=== PATIENT | female | born 1990 | race Caucasian/White ===

== ENCOUNTER 2016-11-04 02:38 | Emergency (ER) | payer SELFPAY ==
[~2016-11-04] VITALS: Ht 165.1 cm; Wt 69.0 kg
[2016-11-04 02:49] VITALS: BP 115/71; PULSE 90; RESP 16; TEMP 98.1; O2SAT 100
== END 2016-11-04 04:32 | disposition left against medical advice (07) ==
LOC: NED 02:38
DX: N39.0 Urinary tract infection, site not specified (principal)
CPT/HCPCS: 99281

== ENCOUNTER 2017-03-11 06:44 | Emergency (ER) | payer SELFPAY ==
[~2017-03-11] VITALS: Ht 167.6 cm; Wt 65.0 kg
[2017-03-11 06:46] VITALS: BP 126/73; PULSE 101; RESP 16; TEMP 99.6; O2SAT 99
[2017-03-11] MEDS ORDERED: PERI0.126 SWISH-SPIT (07:20)
[2017-03-11] MEDS ORDERED: AMOX500C PO (07:20)
[2017-03-11] MEDS ORDERED: IBUP800T23 PO (07:20)
[2017-03-11] MEDS ORDERED: MAGICPED SWISH-SPIT (07:20)
--- NOTE | 2017-03-11 07:21 | PD ---
HPI Chief Complaint: Oral / Dental Pain or Problem Time Seen by Provider: 07:16 Travel History International Travel<30 days: No Contact w/Intl Traveler<30days: No Traveled to known affect area: No History of Present Illness HPI 26-year-old female presents to the emergency department complaining of left lower dental pain 2 days. She says it started 2 weeks ago that subsided and then came back 2 days ago. Denies fever, vomiting. Denies facial edema or erythema. Reports sore throat. She says she has a cavity in her tooth. She has been taking ibuprofen and using Orajel with minimal relief. Pain is constant. Has no other medical complaints. No other modifying factors or associated signs and symptoms. PFSH Past Medical History Blood Disorders: No Anxiety: Yes Depression: No Cardiovascular Problems: No Chemotherapy: No Diabetes: No Diminished Hearing: No Endocrine: No Gastrointestinal Disorders: Yes (n/v easily) Genitourinary: No Hepatitis: No Hiatal Hernia: No Immune Disorder: No Kidney Stones: Yes Musculoskeletal: No Neurologic: No Psychiatric: Yes (ANXIETY) Respiratory: No Immunizations Current: No Radiation Therapy: No Thyroid Disease: No : 2 Para: 0 : 2 Past Surgical History AICD: No Arteriovenous Shunt: No Body Medical Devices: hx CONTROL Ear Surgery: Yes (eustachian tubes bianca) Genitourinary Surgery: Yes (LITHOTRYPSY) Gynecologic Surgery: Yes (ENDOMETRIOSIS SX) Insulin Pump: No Pacemaker: No Tympanostomy Tube: Yes Other Surgery: Yes (KIDNEY STONE- LITHOTRIPSY ) Social History Alcohol Use: No Tobacco Use: Yes (1/2PPD) Substance Use: No Allergies-Medications (Allergen,Severity, Reaction): Coded Allergies: *MDRO Multi-Drug Resistant Organism (Verified Adverse Reaction, Unknown, ) MRSA (wound) - 11/2007 Reported Meds & Prescriptions Reported Meds & Active Scripts Active Peridex Liq (Chlorhexidine Gluconate (Mouth) Liq) 0.12% Soln 15 Ml SWISH-SPIT BID 10 Days Ibuprofen 800 Mg Tab 800 Mg PO Q6HR PRN Magic Mouthwash Pediatric/Adult Liq (Lidocaine/Diphenhydr/Alum/Mg/Simeth) 60 Ml Susp 5 Ml SWISH-SPIT Q3HR PRN Each 5mL contains: Diphenydramine 4.5mg, Viscous Lidocaine 2% 10mg, Maalox Advanced Regular Strength 2.7ml Amoxicillin 500 Mg Cap 500 Mg PO BID 10 Days Review of Systems Except as stated in HPI: all other systems reviewed are Neg Physical Exam Narrative GENERAL: Well-nourished, well-developed female patient, in no acute distress; low grade fever 99.6; nontoxic-appearing SKIN: Warm and dry. HEAD: Atraumatic. Normocephalic. No facial edema, erythema, tenderness on palpation. No lymphadenopathy. EYES: Pupils equal and round. No scleral icterus. No injection or drainage. ENT: Mucosa pink and moist. Oropharynx without edema, erythema or exudates. No uvular edema. No uvular, palatal, or tonsillar deviation. Airway patent. MOUTH: Mucous membranes moist, no lesions, tongue and gums appear normal. Left lower tooth #18 with large dental carry and with tenderness on palpation; turning gingiva is without erythema, edema, drainage. No obvious abscess noted. NECK: Trachea midline. No lymphadenopathy. CARDIOVASCULAR: Regular rate. RESPIRATORY: No accessory muscle use. GASTROINTESTINAL: Flat. MUSCULOSKELETAL: No obvious deformities. No clubbing. No cyanosis. No edema. NEUROLOGICAL: Awake and alert. Oriented 3. No obvious cranial nerve deficits. Motor grossly within normal limits. Normal speech. PSYCHIATRIC: Appropriate mood and affect; insight and judgment normal. Data Data Last Documented VS Vital Signs Date Time Temp Pulse Resp B/P Pulse Ox O2 Delivery O2 Flow Rate FiO2 03/11/17 06:46 99.6 101 16 126/73 99 MDM Medical Decision Making Medical Screen Exam Complete: Yes Emergency Medical Condition: Yes Medical Record Reviewed: Yes Differential Diagnosis Dentalgia, infected dental caries, dental abscess, pharyngitis Narrative Course 26-year-old female with a large dental cavity and dentalgia to left lower tooth #18. Patient is with low-grade fever 99.6. Nontoxic-appearing. No facial erythema or edema. Patient is also complaining of sore throat. Oral pharynx was without erythema, edema, exudate. Emergency dental information sheet provided. Amoxicillin, ibuprofen, Magic mouthwash, Peridex mouth rinse prescribed for home. Instructed patient follow-up with dentist. Patient verbalizes understanding and agreement with treatment plan. Patient is medically cleared and stable for discharge. Discussed reasons to return to the emergency department. Instructed patient to follow up with primary care provider. Patient agrees with treatment plan. The patients vital signs are stable and the patient is stable for outpatient follow-up and treatment. Patient discharged home, stable and in no acute distress. Diagnosis Primary Impression: Tooth pain Additional Impression: Dental cavity Referrals: Dentist Primary Care Physician Patient Instructions: Dental Abscess (ED), Dental Caries (ED), General Instructions, Toothache (ED) Departure Forms: Tests/Procedures Additional Instructions: Complete full course of antibiotics Ibuprofen as directed and as needed to reduce pain and inflammation Use Magic mouthwash rinse as directed and as needed to decrease pain Use Peridex as directed for oral hygiene Warm compresses to the affected area Follow-up with dentist Follow-up with primary care provider Return to emergency department immediately with worsening of symptoms Med/Other Pt SpecificInfo: Prescription(s) given Scripts Chlorhexidine Gluconate (Mouth) Liq (Peridex Liq)0.12% Soln15 Ml SWISH-SPIT BID 10 Days Ref 0 Prov:Honey Flores 03/11/17 Ibuprofen 800 Mg Won470 Mg PO Q6HR PRN (PAIN) #30 TAB Ref 0 Prov:Honey Flores 03/11/17 Uzpbfhokpdnofku-Augqzuncv-Qfr-Alum-Simeth Liq (Magic Mouthwash Pediatric/Adult Liq)60 Ml Susp5 Ml SWISH-SPIT Q3HR PRN (PAIN SCALE 1 TO 10) #60 ML Ref 0 Each 5mL contains: Diphenydramine 4.5mg, Viscous Lidocaine 2% 10mg, Maalox Advanced Regular Strength 2.7ml Prov:Honey Flores 03/11/17 Amoxicillin 500 Mg [id number] Mg PO BID 10 Days Ref 0 Prov:Honey Flores 03/11/17 Disposition: 01 DISCHARGE HOME Condition: Stable Honey Flores March 11, 2017 07:21
== END 2017-03-11 07:50 | disposition home or self-care (01) ==
LOC: NEPK 06:44
DX: K08.89 Other specified disorders of teeth and supporting structures (principal); K02.9 Dental caries, unspecified; J02.9 Acute pharyngitis, unspecified
CPT/HCPCS: 99282

== ENCOUNTER 2017-09-22 18:10 | Emergency (ER) | payer SELFPAY ==
[~2017-09-22] VITALS: Ht 165.1 cm; Wt 65.0 kg
[~2017-09-22 18:10] MED LIST: AMOX500C PO; IBUP1TAB7 PO; MAGICPED SWISH-SPIT; PERI0.126 SWISH-SPIT
[2017-09-22 18:11] VITALS: BP 129/60; PULSE 86; RESP 18; TEMP 98.8; O2SAT 100
[2017-09-22] MEDS ORDERED: SODIUM CHLOR 0.9% 1000 ML INJ 1,000 ML IV ONE (19:13)
[2017-09-22] MEDS ORDERED: SODIUM CHLORIDE 0.9% FLUSH 10 ML FLUSH IVF PRN (19:15)
[2017-09-22] MEDS ORDERED: KETOROLAC TROMETHAMINE 30 MG/ML (IVP) VIAL IV PUSH ONE (19:15)
[2017-09-22 19:41] LABS: AUTOMATED NEUTROPHIL # 3.7 TH/MM3 (1.8-7.7); BASOPHIL % 0.6 % (0.0-2.0); EOSINOPHIL # 0.1 TH/MM3 (0-0.4); EOSINOPHIL % 0.9 % (0.0-4.0); HEMATOCRIT 40.8 % (35.0-46.0); HEMO FLAGS DIFF FINAL; LYMPH % 33.5 % (9.0-44.0); LYMPHOCYTE # 2.1 TH/MM3 (1.0-4.8); MEAN CELL VOLUME 90.4 FL (80.0-100.0); MEAN CORPUSCULAR HEMOGLOBIN 31.1 PG (27.0-34.0); MEAN CORPUSCULAR HGB CONC 34.4 % (32.0-36.0); MONO % 6.7 % (0.0-8.0); NEUT % 58.3 % (16.0-70.0); PLATELET COUNT 188 TH/MM3 (150-450); RED BLOOD COUNT 4.51 MIL/MM3 (4.00-5.30); RED CELL DISTRIBUTION WIDTH 13.3 % (11.6-17.2); WHITE BLOOD COUNT 6.4 TH/MM3 (4.0-11.0)
[2017-09-22 19:43] LABS: BACTERIA, URINE OCC /hpf; BLOOD, URINE SMALL (NEG); COMMENT (UR) CULT NOT INDICATED; CULTURE IF INDICATED CULT NOT INDICATED; GLUCOSE,URINE NEG (NEG); KETONE, URINE 40 mg/dL (NEG); MUCUS URINE FEW /lpf (OCC); NITRITE,URINE NEG (NEG); PH, URINE 6.5 (5.0-8.5); SQUAMOUS EPITHELIAL CELL URINE 4 /hpf (0-5); URINE COLOR YELLOW (YELLW/STRAW)
[2017-09-22 20:04] LABS: ANION GAP 7 MEQ/L (5-15); AST (GOT) 13 U/L (15-37); BICARBONATE 25.6 MEQ/L (21.0-32.0); BLOOD UREA NITROGEN 11 MG/DL (7-18); CHLORIDE 106 MEQ/L (98-107); GLOMERULAR FILTRATION RATE 79 ML/MIN (>89); POTASSIUM 3.5 MEQ/L (3.5-5.1); SODIUM (NA) 139 MEQ/L (136-145)
[2017-09-22 20:08] LABS: ALKALINE PHOSPHATASE 55 U/L (45-117); ALT (GPT) 15 U/L (10-53); TOTAL BILIRUBIN ADULT 0.5 MG/DL (0.2-1.0)
--- NOTE | 2017-09-22 20:24 | PD ---
HPI Chief Complaint: Flank/Kidney Pain Time Seen by Provider: 18:57 Travel History International Travel<30 days: No Contact w/Intl Traveler<30days: No Traveled to known affect area: No History of Present Illness HPI 26-year-old female presents to the emergency room for evaluation of right flank pain, dysuria, urgency, frequency for the past 3 days. She has not been taking anything for her symptoms. Patient has extensive history of kidney stone since she was 11. States this feels the same. She has associated nausea without vomiting. Denies fever, chills, abdominal pain, diarrhea, or abnormal vaginal discharge. Last menstrual cycle was one week ago. PFSH Past Medical History Blood Disorders: No Anxiety: Yes Depression: No Cardiovascular Problems: No Chemotherapy: No Diabetes: No Diminished Hearing: No Endocrine: No Gastrointestinal Disorders: Yes (n/v easily) Genitourinary: No Hepatitis: No Hiatal Hernia: No Immune Disorder: No Kidney Stones: Yes Musculoskeletal: No Neurologic: No Psychiatric: Yes (ANXIETY) Respiratory: No Immunizations Current: No Radiation Therapy: No Thyroid Disease: No ?: Not LMP: 09/2017 : 2 Para: 0 : 2 Past Surgical History AICD: No Arteriovenous Shunt: No Body Medical Devices: hx CONTROL Ear Surgery: Yes (eustachian tubes bianca) Genitourinary Surgery: Yes (LITHOTRYPSY) Gynecologic Surgery: Yes (ENDOMETRIOSIS SX) Insulin Pump: No Pacemaker: No Tympanostomy Tube: Yes Other Surgery: Yes (KIDNEY STONE- LITHOTRIPSY ) Social History Alcohol Use: No Tobacco Use: Yes (1/2PPD) Substance Use: No Allergies-Medications (Allergen,Severity, Reaction): Coded Allergies: levofloxacin (Verified Adverse Reaction, Severe, VOMITING, 09/22/17) *MDRO Multi-Drug Resistant Organism (Verified Adverse Reaction, Unknown, 09/22/17) MRSA (wound) - 11/2007 Reported Meds & Prescriptions Reported Meds & Active Scripts Active No Active Prescriptions or Reported Medications Review of Systems Except as stated in HPI: all other systems reviewed are Neg Physical Exam Narrative GENERAL: Well-nourished, well-developed female in no acute distress. Afebrile. Ambulatory. SKIN: Focused skin assessment warm/dry. HEAD: Normocephalic. EYES: No scleral icterus. No injection or drainage. NECK: Supple, trachea midline. No JVD or lymphadenopathy. CARDIOVASCULAR: Regular rate and rhythm without murmurs, gallops, or rubs. RESPIRATORY: Breath sounds equal bilaterally. No accessory muscle use. GASTROINTESTINAL: Abdomen soft, non-tender, nondistended. BACK: Mild right-sided CVA tenderness. No rash. No point tenderness on palpation of the spine. Data Data Last Documented VS Vital Signs Date Time Temp Pulse Resp B/P (MAP) Pulse Ox O2 Delivery O2 Flow Rate FiO2 09/22/17 18:11 98.8 86 18 129/60 (83) 100 Room Air Orders Orders Complete Blood Count With Diff (09/22/17 19:13) Comprehensive Metabolic Panel (09/22/17 19:13) Urinalysis - C+S If Indicated (09/22/17 19:13) Ed Urine Pregnancytest Poc (09/22/17 19:13) Ct Abd/Pel W/O Iv Contrast (09/22/17 19:13) Iv Access Insert/Monitor (09/22/17 19:13) Ketorolac Inj (Toradol Inj) (09/22/17 19:15) Sodium Chloride 0.9% Flush (Ns Flush) (09/22/17 19:15) Sodium Chlor 0.9% 1000 Ml Inj (Ns 1000 M (09/22/17 19:13) Labs Laboratory Tests Test 09/22/17 19:20 White Blood Count 6.4 TH/MM3 Red Blood Count 4.51 MIL/MM3 Hemoglobin 14.0 GM/DL Hematocrit 40.8 % Mean Corpuscular Volume 90.4 FL Mean Corpuscular Hemoglobin 31.1 PG Mean Corpuscular Hemoglobin Concent 34.4 % Red Cell Distribution Width 13.3 % Platelet Count 188 TH/MM3 Mean Platelet Volume 10.0 FL Neutrophils (%) (Auto) 58.3 % Lymphocytes (%) (Auto) 33.5 % Monocytes (%) (Auto) 6.7 % Eosinophils (%) (Auto) 0.9 % Basophils (%) (Auto) 0.6 % Neutrophils # (Auto) 3.7 TH/MM3 Lymphocytes # (Auto) 2.1 TH/MM3 Monocytes # (Auto) 0.4 TH/MM3 Eosinophils # (Auto) 0.1 TH/MM3 Basophils # (Auto) 0.0 TH/MM3 CBC Comment DIFF FINAL Differential Comment Urine Color YELLOW Urine Turbidity CLEAR Urine pH 6.5 Urine Specific [place] 1.024 Urine Protein TRACE mg/dL Urine Glucose (UA) NEG mg/dL Urine Ketones 40 mg/dL Urine Occult Blood SMALL Urine Nitrite NEG Urine Bilirubin NEG Urine Urobilinogen LESS THAN 2.0 MG/DL Urine Leukocyte Esterase TRACE Urine RBC 2 /hpf Urine WBC 2 /hpf Urine Squamous Epithelial Cells 4 /hpf Urine Amorphous Sediment RARE Urine Bacteria OCC /hpf Urine Mucus FEW /lpf Microscopic Urinalysis Comment CULT NOT INDICATED Blood Urea Nitrogen 11 MG/DL Creatinine 0.86 MG/DL Random Glucose 82 MG/DL Total Protein 7.7 GM/DL Albumin 4.5 GM/DL Calcium Level 8.8 MG/DL Alkaline Phosphatase 55 U/L Aspartate Amino Transf (AST/SGOT) 13 U/L Alanine Aminotransferase (ALT/SGPT) 15 U/L Total Bilirubin 0.5 MG/DL Sodium Level 139 MEQ/L Potassium Level 3.5 MEQ/L Chloride Level 106 MEQ/L Carbon Dioxide Level 25.6 MEQ/L Anion Gap 7 MEQ/L Estimat Glomerular Filtration Rate 79 ML/MIN [facility] Medical Decision Making Medical Screen Exam Complete: Yes Emergency Medical Condition: Yes Medical Record Reviewed: Yes Differential Diagnosis UTI, nephrolithiasis, renal calculus, dysuria, obstructive uropathy Narrative Course 18-year-old female history of nephrolithiasis presents to the emergency room for evaluation of right flank pain, dysuria, urgency, frequency for the past 3 weeks that has worsened especially over the past 3 days. She denies objective fevers, vaginal discharge. LMP was 1 week ago. Vital signs stable and the ED. Abdomen soft, nontender. No flank moderate right-sided CVA tenderness. CBC and CMP are unremarkable. UA shows evidence of urinary tract infection especially given patient is symptomatic. CT ordered and pending. Patient signed out the nighttime provider pending CT results. Scripts Nitrofurantoin Monohydrate Macrocrystals (Macrobid) 100 Mg Capsule 100 MG PO BID for Infection for 7 Days, #14 CAP 0 Refills Prov: Davy Eli MD 09/22/17 Condition: Stable Connie Johnson Sep 22, 2017 20:24
[2017-09-22] MEDS ORDERED: MACR100C2 PO (20:47)
--- NOTE | 2017-09-22 21:04 | RADRPT ---
EXAM DATE/TIME: 09/22/2017 20:00 [place] COMPARISON: CT ABDOMEN & PELVIS W/O CONTRAST, December 27, 2015, 10:31. INDICATIONS : Right flank pain past 3 days. ORAL CONTRAST: No oral contrast ingested. RADIATION DOSE: 12.04 CTDIvol (mGy) MEDICAL HISTORY : Renal calculi. SURGICAL HISTORY : None. ENCOUNTER: Initial ACUITY: 3 days PAIN SCALE: 7/10 LOCATION: Right flank TECHNIQUE: Volumetric scanning of the abdomen and pelvis was performed. Using automated exposure control and ad justment of the mA and/or kV according to patient size, radiation dose was kept as low as reasonably achievable to obtain optimal diagnostic quality images. DICOM format image data is available electro nically for review and comparison. FINDINGS: LOWER LUNGS: The visualized lower lungs are clear. LIVER: Homogeneous density without lesion. There is no dilation of the biliary tree. No calcified gallston es. SPLEEN: Normal size without lesion. PANCREAS: Within normal limits. KIDNEYS: Normal in size and shape. There is no mass, stone, or hydronephrosis. No calcifications along the c ourse of either ureter. ADRENAL GLANDS: Within normal limits. VASCULAR: There is no aortic aneurysm. BOWEL/MESENTERY: The stomach, small bowel, and colon demonstrate no acute abnormality. There is no free intraperitone al air or fluid. ABDOMINAL WALL: Within normal limits. RETROPERITONEUM: There is no lymphadenopathy. BLADDER: No wall thickening or mass. REPRODUCTIVE: Anteverted uterus low density area in the left adnexa probably representing ovarian cyst, similar to prior. Vaginal tampon in place. INGUINAL: There is no lymphadenopathy or hernia. MUSCULOSKELETAL: No acute findings. Stable bone island left femoral head. CONCLUSION: No evidence of calcified renal stones or hydronephrosis. Dean Thornton MD on September 22, 2017 at 20:59 Board Certified Radiologist. This report was verified electronically.
--- NOTE | 2017-09-22 21:35 | PD ---
Physical Exam Narrative GENERAL: SKIN: Warm and dry. HEAD: Atraumatic. Normocephalic. EYES: Pupils equal and round. No scleral icterus. No injection or drainage. ENT: No nasal bleeding or discharge. Mucous membranes pink and moist. NECK: Trachea midline. No JVD. CARDIOVASCULAR: Regular rate and rhythm. RESPIRATORY: No accessory muscle use. Clear to auscultation. Breath sounds equal bilaterally. GASTROINTESTINAL: Abdomen soft, non-tender, nondistended. MUSCULOSKELETAL: Extremities without clubbing, cyanosis, or edema. No obvious deformities. NEUROLOGICAL: Awake and alert. No obvious cranial nerve deficits. Motor grossly within normal limits. Five out of 5 muscle strength in the arms and legs. Normal speech. PSYCHIATRIC: Appropriate mood and affect; insight and judgment normal. Data Data Last Documented VS Vital Signs Date Time Temp Pulse Resp B/P (MAP) Pulse Ox O2 Delivery O2 Flow Rate FiO2 09/22/17 18:11 98.8 86 18 129/60 (83) 100 Room Air Orders Orders Complete Blood Count With Diff (09/22/17 19:13) Comprehensive Metabolic Panel (09/22/17 19:13) Urinalysis - C+S If Indicated (09/22/17 19:13) Ed Urine Pregnancytest Poc (09/22/17 19:13) Ct Abd/Pel W/O Iv Contrast (09/22/17 19:13) Iv Access Insert/Monitor (09/22/17 19:13) Ketorolac Inj (Toradol Inj) (09/22/17 19:15) Sodium Chloride 0.9% Flush (Ns Flush) (09/22/17 19:15) Sodium Chlor 0.9% 1000 Ml Inj (Ns 1000 M (09/22/17 19:13) Labs Laboratory Tests Test 09/22/17 19:20 White Blood Count 6.4 TH/MM3 Red Blood Count 4.51 MIL/MM3 Hemoglobin 14.0 GM/DL Hematocrit 40.8 % Mean Corpuscular Volume 90.4 FL Mean Corpuscular Hemoglobin 31.1 PG Mean Corpuscular Hemoglobin Concent 34.4 % Red Cell Distribution Width 13.3 % Platelet Count 188 TH/MM3 Mean Platelet Volume 10.0 FL Neutrophils (%) (Auto) 58.3 % Lymphocytes (%) (Auto) 33.5 % Monocytes (%) (Auto) 6.7 % Eosinophils (%) (Auto) 0.9 % Basophils (%) (Auto) 0.6 % Neutrophils # (Auto) 3.7 TH/MM3 Lymphocytes # (Auto) 2.1 TH/MM3 Monocytes # (Auto) 0.4 TH/MM3 Eosinophils # (Auto) 0.1 TH/MM3 Basophils # (Auto) 0.0 TH/MM3 CBC Comment DIFF FINAL Differential Comment Urine Color YELLOW Urine Turbidity CLEAR Urine pH 6.5 Urine Specific [place] 1.024 Urine Protein TRACE mg/dL Urine Glucose (UA) NEG mg/dL Urine Ketones 40 mg/dL Urine Occult Blood SMALL Urine Nitrite NEG Urine Bilirubin NEG Urine Urobilinogen LESS THAN 2.0 MG/DL Urine Leukocyte Esterase TRACE Urine RBC 2 /hpf Urine WBC 2 /hpf Urine Squamous Epithelial Cells 4 /hpf Urine Amorphous Sediment RARE Urine Bacteria OCC /hpf Urine Mucus FEW /lpf Microscopic Urinalysis Comment CULT NOT INDICATED Blood Urea Nitrogen 11 MG/DL Creatinine 0.86 MG/DL Random Glucose 82 MG/DL Total Protein 7.7 GM/DL Albumin 4.5 GM/DL Calcium Level 8.8 MG/DL Alkaline Phosphatase 55 U/L Aspartate Amino Transf (AST/SGOT) 13 U/L Alanine Aminotransferase (ALT/SGPT) 15 U/L Total Bilirubin 0.5 MG/DL Sodium Level 139 MEQ/L Potassium Level 3.5 MEQ/L Chloride Level 106 MEQ/L Carbon Dioxide Level 25.6 MEQ/L Anion Gap 7 MEQ/L Estimat Glomerular Filtration Rate 79 ML/MIN [facility] Medical Record Reviewed: Yes Supervised Visit with ISAURO: Yes Narrative Course ct neg for kidney stones or kidney abscess Diagnosis Primary Impression: UTI (urinary tract infection) Qualified Codes: N30.01 - Acute cystitis with hematuria Scripts Nitrofurantoin Monohydrate Macrocrystals (Macrobid) 100 Mg Capsule 100 MG PO BID for Infection for 7 Days, #14 CAP 0 Refills Prov: Davy Eli MD 09/22/17 Disposition: 01 DISCHARGE HOME Condition: Stable Davy Eli MD Sep 22, 2017 21:35
== END 2017-09-22 21:49 | disposition home or self-care (01) ==
LOC: NEPD 18:10
DX: N39.0 Urinary tract infection, site not specified (principal); R11.0 Nausea; F41.9 Anxiety disorder, unspecified; F17.200 Nicotine dependence, unspecified, uncomplicated; Z88.8 Allergy status to other drugs, medicaments and biological substances
CPT/HCPCS: 74176; 80053; 81001; 84703; 85025; 96361; 96374; 99285; J1885; J7030

== ENCOUNTER 2017-10-27 16:27 | Emergency (ER) | payer SELFPAY ==
[~2017-10-27] VITALS: Ht 165.1 cm; Wt 68.0 kg
[~2017-10-27 16:27] MED LIST changes: -AMOX500C PO; -IBUP1TAB7 PO; +MACR100C2 PO; -MAGICPED SWISH-SPIT; -PERI0.126 SWISH-SPIT
[2017-10-27 16:36] VITALS: BP 113/63; PULSE 70; RESP 16; TEMP 98.5; O2SAT 99
[2017-10-27] MEDS ORDERED: SODIUM CHLOR 0.9% 1000 ML INJ 1,000 ML IV ONE (17:04)
[2017-10-27 17:07] LABS: BILIRUBIN, URINE NEG (NEG); BLOOD, URINE NEG (NEG); GLUCOSE,URINE NEG (NEG); KETONE, URINE NEG (NEG); NITRITE,URINE NEG (NEG); URINE LEUKOCYTE ESTERASE NEG (NEG)
--- NOTE | 2017-10-27 17:12 | PD ---
HPI Chief Complaint: Headache Time Seen by Provider: 17:04 Travel History International Travel<30 days: Yes Contact w/Intl Traveler<30days: Yes Name of Country Traveled to: [facility] Traveled to known affect area: No History of Present Illness HPI 27-year-old female patient with history of kidney stones, presents to the ER today for several days history of fevers, nausea, headaches, sore throat, nasal congestion, nausea and vomiting, not feeling well. She denies any abdominal pains, diarrhea, or other symptoms. She states that she has been recently on a cruise with her family to the [facility] but nobody else in her family has been sick. Headache is currently reported as 7 out of 10. Modifying Factors: None Associated Signs & Symptoms: Headaches, nausea, vomiting, sore throat, fevers, malaise Risk Factors: Recent cruise, she states that her cruise was turned around because of an outbreak of adenovirus PFSH Past Medical History Blood Disorders: No Anxiety: Yes Depression: No Cardiovascular Problems: No Chemotherapy: No Diabetes: No Diminished Hearing: No Endocrine: No Gastrointestinal Disorders: Yes (n/v easily) Genitourinary: No Hepatitis: No Hiatal Hernia: No Immune Disorder: No Kidney Stones: Yes Medical other: No Musculoskeletal: No Neurologic: No Psychiatric: Yes Respiratory: No Immunizations Current: No Radiation Therapy: No Thyroid Disease: No ?: Unknown LMP: 09/18/17 : 2 Para: 0 : 2 Past Surgical History AICD: No Arteriovenous Shunt: No Body Medical Devices: hx CONTROL Ear Surgery: Yes (eustachian tubes bianca) Genitourinary Surgery: Yes (LITHOTRYPSY) Gynecologic Surgery: Yes (ENDOMETRIOSIS SX) Insulin Pump: No Pacemaker: No Tympanostomy Tube: Yes Other Surgery: Yes (KIDNEY STONE- LITHOTRIPSY ) Social History Alcohol Use: No Tobacco Use: Yes (1PPD) Substance Use: No Allergies-Medications (Allergen,Severity, Reaction): Coded Allergies: levofloxacin (Verified Adverse Reaction, Severe, VOMITING, 10/27/17) *MDRO Multi-Drug Resistant Organism (Verified Adverse Reaction, Unknown, 10/27/17) MRSA (wound) - 11/2007 Reported Meds & Prescriptions Reported Meds & Active Scripts Active No Active Prescriptions or Reported Medications Review of Systems Except as stated in HPI: all other systems reviewed are Neg Physical Exam Narrative GENERAL: Well-developed young female patient currently in mild distress. Awake and oriented 3. SKIN: Focused skin assessment warm/dry. HEAD: Atraumatic. Normocephalic. EYES: Pupils equal and round. No scleral icterus. No injection or drainage. ENT: Mucosa pink and moist. Notable erythema with no exudates. No uvular edema. No uvular, palatal, or tonsillar deviation. Airway patent. NECK: Trachea midline. No JVD. Supple. CARDIOVASCULAR: Regular rate and rhythm. No murmur appreciated. RESPIRATORY: No accessory muscle use. Clear to auscultation. Breath sounds equal bilaterally. GASTROINTESTINAL: Abdomen soft, non-tender, nondistended. Hepatic and splenic margins not palpable. MUSCULOSKELETAL: No obvious deformities. No clubbing. No cyanosis. No edema. NEUROLOGICAL: Awake and alert. No obvious cranial nerve deficits. Motor grossly within normal limits. Normal speech. PSYCHIATRIC: Appropriate mood and affect; insight and judgment normal. Data Data Last Documented VS Vital Signs Date Time Temp Pulse Resp B/P (MAP) Pulse Ox O2 Delivery O2 Flow Rate FiO2 10/27/17 18:09 72 18 112/68 (83) 97 Room Air 10/27/17 16:36 98.5 Orders Orders Urinalysis - C+S If Indicated (10/27/17 16:46) Ed Urine Pregnancytest Poc (10/27/17 16:46) Sepsis Workup Initiated (10/27/17 ) Complete Blood Count With Diff (10/27/17 17:04) Comprehensive Metabolic Panel (10/27/17 17:04) Lactic Acid Sepsis Protocol (10/27/17 17:04) Lipase (10/27/17 17:04) Influenzae A/B Antigen (10/27/17 17:04) Blood Culture (10/27/17 17:04) Chest, Single Ap (10/27/17 17:04) Blood Glucose (10/27/17 17:04) Ecg Monitoring (10/27/17 17:04) Iv Access Insert/Monitor (10/27/17 17:04) Oximetry (10/27/17 17:04) Oxygen Administration (10/27/17 17:04) Sodium Chlor 0.9% 1000 Ml Inj (Ns 1000 M (10/27/17 17:04) Metoclopramide Inj (Reglan Inj) (10/27/17 17:15) Diphenhydramine Inj (Benadryl Inj) (10/27/17 17:15) Group A Rapid Strep Screen (10/27/17 17:04) Strep Culture (Group A) (10/27/17 17:15) Ed Discharge Order (10/27/17 18:21) Labs Laboratory Tests Test 10/27/17 16:55 10/27/17 17:15 Urine Color YELLOW Urine Turbidity SLIGHT Urine pH 6.0 Urine Specific [place] 1.021 Urine Protein NEG mg/dL Urine Glucose (UA) NEG mg/dL Urine Ketones NEG mg/dL Urine Occult Blood NEG Urine Nitrite NEG Urine Bilirubin NEG Urine Leukocyte Esterase NEG Urine WBC 0-2 /hpf Urine Squamous Epithelial Cells 0-5 /hpf Urine Mucus FEW /lpf Microscopic Urinalysis Comment CULT NOT INDICATED White Blood Count 4.2 TH/MM3 Red Blood Count 4.17 MIL/MM3 Hemoglobin 12.8 GM/DL Hematocrit 38.3 % Mean Corpuscular Volume 91.8 FL Mean Corpuscular Hemoglobin 30.7 PG Mean Corpuscular Hemoglobin Concent 33.4 % Red Cell Distribution Width 12.8 % Platelet Count 133 TH/MM3 Mean Platelet Volume 10.1 FL Neutrophils (%) (Auto) 52.2 % Lymphocytes (%) (Auto) 33.6 % Monocytes (%) (Auto) 9.4 % Eosinophils (%) (Auto) 3.2 % Basophils (%) (Auto) 1.6 % Neutrophils # (Auto) 2.2 TH/MM3 Lymphocytes # (Auto) 1.4 TH/MM3 Monocytes # (Auto) 0.4 TH/MM3 Eosinophils # (Auto) 0.1 TH/MM3 Basophils # (Auto) 0.1 TH/MM3 CBC Comment DIFF FINAL Differential Comment Blood Urea Nitrogen 13 MG/DL Creatinine 0.66 MG/DL Random Glucose 81 MG/DL Total Protein 6.5 GM/DL Albumin 3.5 GM/DL Calcium Level 8.3 MG/DL Alkaline Phosphatase 40 U/L Aspartate Amino Transf (AST/SGOT) 24 U/L Alanine Aminotransferase (ALT/SGPT) 21 U/L Total Bilirubin 0.2 MG/DL Sodium Level 139 MEQ/L Potassium Level 4.2 MEQ/L Chloride Level 104 MEQ/L Carbon Dioxide Level 29.9 MEQ/L Anion Gap 5 MEQ/L Estimat Glomerular Filtration Rate 106 ML/MIN Lactic Acid Level 0.7 mmol/L Lipase 293 U/L MDM Medical Decision Making Medical Screen Exam Complete: Yes Emergency Medical Condition: Yes Medical Record Reviewed: Yes Interpretation(s) Laboratory Tests Test 10/27/17 16:55 10/27/17 17:15 Urine Mucus FEW /lpf (OCC) Platelet Count 133 TH/MM3 (150-450) Monocytes (%) (Auto) 9.4 % (0.0-8.0) Calcium Level 8.3 MG/DL (8.5-10.1) Alkaline Phosphatase 40 U/L (45-117) Differential Diagnosis Viral syndrome versus influenza versus dehydration versus metabolic issues versus UTI versus migraine headaches Narrative Course strep and influenza is negative. Chest x-rays unremarkable. Lab work was otherwise unremarkable as well. She was given IV fluids, Reglan and Benadryl in the ER. On reevaluation at 6:20 PM, she is feeling improved. Vital signs are stable. At this point, my plan would be to release her with follow-up to primary care physician as needed. Stay hydrated, drink plenty of fluids. Return for any worsening in symptoms as needed. The plan has been discussed with her and she states understanding. Diagnosis Primary Impression: Viral syndrome Scripts No Active Prescriptions or Reported Meds Disposition: 01 DISCHARGE HOME Condition: Stable Puma Daniels MD Oct 27, 2017 17:12
[2017-10-27] MEDS ORDERED: diphenhydrAMINE HCL 50 MG/ML VIAL IV PUSH ONE (17:15)
[2017-10-27] MEDS ORDERED: METOCLOPRAMIDE HCL 10 MG/2 ML VIAL IV PUSH ONE (17:15)
[2017-10-27 17:31] LABS: AUTOMATED NEUTROPHIL # 2.2 TH/MM3 (1.8-7.7); BASOPHIL # 0.1 TH/MM3 (0-0.2); BASOPHIL % 1.6 % (0.0-2.0); EOSINOPHIL # 0.1 TH/MM3 (0-0.4); EOSINOPHIL % 3.2 % (0.0-4.0); HEMATOCRIT 38.3 % (35.0-46.0); HEMOGLOBIN 12.8 GM/DL (11.6-15.3); LYMPH % 33.6 % (9.0-44.0); LYMPHOCYTE # 1.4 TH/MM3 (1.0-4.8); MEAN CELL VOLUME 91.8 FL (80.0-100.0); MEAN CORPUSCULAR HEMOGLOBIN 30.7 PG (27.0-34.0); MEAN CORPUSCULAR HGB CONC 33.4 % (32.0-36.0); MEAN PLATELET VOLUME 10.1 FL (7.0-11.0); MONO % 9.4 % (0.0-8.0); MONOCYTE # 0.4 TH/MM3 (0-0.9); NEUT % 52.2 % (16.0-70.0); PLATELET COUNT 133 TH/MM3 (150-450); RED BLOOD COUNT 4.17 MIL/MM3 (4.00-5.30); RED CELL DISTRIBUTION WIDTH 12.8 % (11.6-17.2); WHITE BLOOD COUNT 4.2 TH/MM3 (4.0-11.0)
[2017-10-27 17:33] LABS: URINE COLOR YELLOW (YELLW/STRAW)
[2017-10-27 17:34] LABS: MUCUS URINE FEW /lpf (OCC); SQUAMOUS EPITHELIAL CELL URINE 0-5 /hpf (0-5); WBC, URINE 0-2 /hpf (0-5)
[2017-10-27 17:43] LABS: CHLORIDE 104 MEQ/L (98-107); SODIUM (NA) 139 MEQ/L (136-145)
[2017-10-27 17:47] LABS: ALBUMIN 3.5 GM/DL (3.4-5.0); BICARBONATE 29.9 MEQ/L (21.0-32.0); CALCIUM 8.3 MG/DL (8.5-10.1); LIPASE 293 U/L (73-393)
[2017-10-27 17:48] LABS: BLOOD UREA NITROGEN 13 MG/DL (7-18); GLUCOSE,RANDOM 81 MG/DL (74-106)
[2017-10-27 17:50] LABS: ALT (GPT) 21 U/L (10-53); AST (GOT) 24 U/L (15-37); CREATININE 0.66 MG/DL (0.50-1.00); GLOMERULAR FILTRATION RATE 106 ML/MIN (>89)
[2017-10-27 17:52] LABS: TOTAL BILIRUBIN ADULT 0.2 MG/DL (0.2-1.0); TOTAL PROTEIN 6.5 GM/DL (6.4-8.2)
[2017-10-27 17:53] LABS: ALKALINE PHOSPHATASE 40 U/L (45-117)
[2017-10-27 17:59] VITALS: O2SAT 97
[2017-10-27 18:09] VITALS: BP 112/68; PULSE 72; RESP 18; O2SAT 97
--- NOTE | 2017-10-27 18:19 | RADRPT ---
EXAM DATE/TIME: 10/27/2017 17:43 [facility] COMPARISON: No previous studies available for comparison. INDICATIONS : Fever and flu symptoms and headache. MEDICAL HISTORY : Renal calculi. SURGICAL HISTORY : None. ENCOUNTER: Initial ACUITY: 3 days PAIN SCORE: 10/10 LOCATION: all over FINDINGS: A single view of the chest demonstrates the lungs to be symmetrically aerated without evidence of mas s, infiltrate or effusion. The cardiomediastinal contours are unremarkable. Osseous structures are intact. CONCLUSION: No evidence of acute cardiopulmonary disease. Cirilo Richards MD on October 27, 2017 at 18:17 Board Certified Radiologist. This report was verified electronically.
== END 2017-10-27 18:43 | disposition home or self-care (01) ==
LOC: PHED 16:27
DX: B34.9 Viral infection, unspecified (principal); F41.9 Anxiety disorder, unspecified
CPT/HCPCS: 71010; 80053; 81001; 83605; 83690; 84703; 85025; 87040; 87081; 87804; 87880; 96361; 96374; 96375; 99284; J1200; J2765; J7030

== ENCOUNTER 2017-11-04 09:39 | Emergency (ER) | payer SELFPAY ==
[~2017-11-04] VITALS: Ht 165.1 cm; Wt 66.7 kg
[2017-11-04 09:41] VITALS: BP 131/60; PULSE 77; RESP 18; TEMP 97.9; O2SAT 100
[2017-11-04] MEDS ORDERED: AUGM875T3 PO (10:25)
[2017-11-04] MEDS ORDERED: FLUT1SPR5 EACH NARE (10:25)
--- NOTE | 2017-11-04 10:25 | PD ---
HPI Chief Complaint: Cold / Flu Symptoms Time Seen by Provider: 10:06 Travel History International Travel<30 days: No Contact w/Intl Traveler<30days: No Traveled to known affect area: No History of Present Illness HPI 27-year-old female here with sinus pain, congestion, reported purulent nasal discharge, headache 10 days. Symptom severity is moderate. Unrelieved by over -the-counter ibuprofen. No aggravating factors. Similar symptoms in the past with sinusitis. She denies fever, chills, neck pain. PFSH Past Medical History Blood Disorders: No Anxiety: Yes Depression: No Cardiovascular Problems: No Chemotherapy: No Diabetes: No Diminished Hearing: No Endocrine: No Gastrointestinal Disorders: Yes (n/v easily) Genitourinary: No Hepatitis: No Hiatal Hernia: No Immune Disorder: No Kidney Stones: Yes Musculoskeletal: No Neurologic: No Psychiatric: Yes Respiratory: No Immunizations Current: No Radiation Therapy: No Thyroid Disease: No ?: Not : 2 Para: 0 : 2 Past Surgical History AICD: No Arteriovenous Shunt: No Body Medical Devices: hx CONTROL Ear Surgery: Yes (eustachian tubes bianca) Genitourinary Surgery: Yes (LITHOTRYPSY) Gynecologic Surgery: Yes (ENDOMETRIOSIS SX) Insulin Pump: No Pacemaker: No Tympanostomy Tube: Yes Other Surgery: Yes (KIDNEY STONE- LITHOTRIPSY ) Social History Alcohol Use: No Tobacco Use: Yes (1PPD) Substance Use: No Allergies-Medications (Allergen,Severity, Reaction): Coded Allergies: levofloxacin (Verified Adverse Reaction, Severe, VOMITING, 11/04/17) *MDRO Multi-Drug Resistant Organism (Verified Adverse Reaction, Unknown, ) MRSA (wound) - 11/2007 Reported Meds & Prescriptions Reported Meds & Active Scripts Active No Active Prescriptions or Reported Medications Review of Systems Except as stated in HPI: all other systems reviewed are Neg General / Constitutional: No: Fever Eyes: No: Visual changes HENT: Positive: Headaches, Congestion Cardiovascular: No: Chest Pain or Discomfort Respiratory: No: Shortness of Breath Gastrointestinal: No: Abdominal Pain Genitourinary: No: Dysuria Physical Exam Narrative GENERAL: Alert female SKIN: Warm and dry. No rash. HEAD: Normocephalic. EYES: No injection or drainage. Nose: Tenderness over the frontal maxillary sinuses. Makes members are moist. No bleeding. NECK: Supple, trachea midline. No JVD or lymphadenopathy. No meningismus CARDIOVASCULAR: Regular rate and rhythm without murmurs, gallops, or rubs. RESPIRATORY: Breath sounds equal bilaterally. No accessory muscle use. GASTROINTESTINAL: Abdomen soft, non-tender, nondistended. MUSCULOSKELETAL: No cyanosis, or edema. BACK: Nontender without obvious deformity. No CVA tenderness. Data Data Last Documented VS Vital Signs Date Time Temp Pulse Resp B/P (MAP) Pulse Ox O2 Delivery O2 Flow Rate FiO2 11/04/17 09:41 97.9 77 18 131/60 (83) 100 MDM Medical Decision Making Medical Screen Exam Complete: Yes Emergency Medical Condition: Yes Differential Diagnosis Sinusitis, URI, sinus headache, migraine Narrative Course 27-year-old female here with sinusitis. She is well-appearing. Vital signs are stable. She has normal neurologic exam. Diagnosis Primary Impression: Sinusitis Qualified Codes: J01.90 - Acute sinusitis, unspecified Referrals: [facility] Scripts Fluticasone Nasal [place] (Flonase Nasal [place]) 50 Mcg/Act [place] 50 MCG EACH NARE BID for Allergies, #1 BOTTLE 0 Refills Prov: Linda Minor 11/04/17 Amoxicillin-Clavulanate (Augmentin) 875-125 Mg Tab 1 TAB PO BID for Infection, #20 TAB 0 Refills Prov: Linda Minor 11/04/17 Disposition: 01 DISCHARGE HOME Condition: Stable Linda Minor Nov 04, 2017 10:25
== END 2017-11-04 10:40 | disposition home or self-care (01) ==
LOC: PHEFT 09:39
DX: J32.9 Chronic sinusitis, unspecified (principal); F41.9 Anxiety disorder, unspecified; F17.200 Nicotine dependence, unspecified, uncomplicated
CPT/HCPCS: 99283

== ENCOUNTER 2017-12-16 14:51 | Emergency (ER) | payer SELFPAY ==
[~2017-12-16] VITALS: Ht 165.1 cm; Wt 64.2 kg
[~2017-12-16 14:51] MED LIST changes: +AUGM875T3 PO; +FLUT1SPR5 EACH NARE; -MACR100C2 PO
[2017-12-16 15:15] VITALS: BP 146/73; PULSE 92; RESP 16; TEMP 99; O2SAT 98
--- NOTE | 2017-12-16 15:41 | PD ---
HPI Chief Complaint: Injury Time Seen by Provider: 15:25 Travel History International Travel<30 days: No Contact w/Intl Traveler<30days: No Traveled to known affect area: No History of Present Illness HPI 27-year-old female presents to the emergency room for evaluation of right hand pain and bilateral shoulder pain for the past month. Patient states pain is intermittent and occurs especially at night. Worse when she is using it. She gets paresthesias in bilateral arms if she lies on her shoulders. She reports paresthesias in the right third and fourth fingers that occur intermittently. Pain is localized to the center palm of the hand. She has been taking ibuprofen and using Patrick wraps which moderately relieved her symptoms. Pain has been gradual and is caused by repetitive motion at work. 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 States while at work today her hand cramped up and it was the worst pain she has had thus far. Her boss sent her home from work because she was crying in pain. PFSH Past Medical History Blood Disorders: No Anxiety: Yes Depression: No Cardiovascular Problems: No Chemotherapy: No Diabetes: No Diminished Hearing: No Endocrine: No Gastrointestinal Disorders: Yes (n/v easily) Genitourinary: No Hepatitis: No Hiatal Hernia: No Immune Disorder: No Kidney Stones: Yes Musculoskeletal: No Neurologic: No Psychiatric: Yes Respiratory: No Immunizations Current: No Radiation Therapy: No Thyroid Disease: No ?: Not LMP: 12/07/17 : 2 Para: 0 : 2 Past Surgical History AICD: No Arteriovenous Shunt: No Body Medical Devices: hx CONTROL Ear Surgery: Yes (eustachian tubes bianca) Genitourinary Surgery: Yes (LITHOTRYPSY) Gynecologic Surgery: Yes (ENDOMETRIOSIS SX) Insulin Pump: No Pacemaker: No Tympanostomy Tube: Yes Other Surgery: Yes (KIDNEY STONE- LITHOTRIPSY ) Social History Alcohol Use: No Tobacco Use: Yes (1PPD) Substance Use: No Allergies-Medications (Allergen,Severity, Reaction): Coded Allergies: levofloxacin (Verified Adverse Reaction, Severe, VOMITING, 12/16/17) *MDRO Multi-Drug Resistant Organism (Verified Adverse Reaction, Unknown, ) MRSA (wound) - 11/2007 Reported Meds & Prescriptions Reported Meds & Active Scripts Active Flonase Nasal [place] (Fluticasone Nasal [place]) 50 Mcg/Act [place] 50 Mcg EACH NARE BID Augmentin (Amoxicillin-Clavulanate) 875-125 Mg Tab 1 Tab PO BID Review of Systems Except as stated in HPI: all other systems reviewed are Neg Physical Exam Narrative GENERAL: Well-nourished, well-developed female in no acute distress. Afebrile. Ambulatory. SKIN: Focused skin assessment warm/dry. No erythema or ecchymosis. HEAD: Normocephalic. EYES: No scleral icterus. No injection or drainage. NECK: Supple, trachea midline. No JVD or lymphadenopathy. CARDIOVASCULAR: Regular rate and rhythm without murmurs, gallops, or rubs. RESPIRATORY: Breath sounds equal bilaterally. No accessory muscle use. MUSCULOSKELETAL: No cyanosis, or edema. 2+ radial pulse and less than 2 second capillary refill distally.. Full range of motion of the hand. Radial, ulnar, median nerves intact. Data Data Last Documented VS Vital Signs Date Time Temp Pulse Resp B/P (MAP) Pulse Ox O2 Delivery O2 Flow Rate FiO2 12/16/17 15:15 99.0 92 16 146/73 (97) 98 Orders Orders Ketorolac Inj (Toradol Inj) (12/16/17 15:45) Splint Or Brace Apply/Monitor (12/16/17 15:36) Hand, Limited (2vws) (12/16/17 ) MDM Medical Decision Making Medical Screen Exam Complete: Yes Emergency Medical Condition: Yes Medical Record Reviewed: Yes Differential Diagnosis Tendinitis, muscle strain, spasm, nerve pain Narrative Course 27-year-old female presents to the emergency room for evaluation of right hand pain and cramping and intermittent paresthesias for the past month. 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 No other trauma. Physical exam is unremarkable. There is no edema, ecchymosis, erythema. It is neurovascularly intact with 2+ radial pulse and radial, ulnar, median nerves intact. Full range of motion. Strength 5/5 and equal. X-ray is negative for any calcifications. This is overuse injury/tendinitis. Patient was given Toradol in the ED and placed in a wrist splint. She was told to follow-up with a primary care physician or hand surgeon or return for worsening symptoms. She understands and agrees to plan. Diagnosis Primary Impression: Right hand tendonitis Referrals: Primary Care Physician Additional Instructions: Rest and drink plenty of fluids. Take ibuprofen with food as directed, as needed for pain. Apply ice to the affected area for 20 minutes at a time, as needed for pain and swelling. Follow-up with a primary care physician. Return to the emergency room for worsening symptoms. Disposition: 01 DISCHARGE HOME Condition: Stable Connie Johnson Dec 16, 2017 15:41
[2017-12-16] MEDS ORDERED: KETOROLAC TROMETHAMINE 60 MG/2 ML (IM) VIAL IM ONE (15:45)
--- NOTE | 2017-12-16 15:58 | RADRPT ---
EXAM DATE/TIME: 12/16/2017 15:45 [facility] COMPARISON: No previous studies available for comparison. INDICATIONS : Right hand pain after patient injured hand at work within the last month MEDICAL HISTORY : None. SURGICAL HISTORY : None. ENCOUNTER: Initial ACUITY: 1 month PAIN SCORE: 5/10 LOCATION: [place] surface of hand FINDINGS: Two view examination of the right hand demonstrates no soft tissue swelling, dislocation, or fracture . The joint spaces are maintained. Bony mineralization is normal. CONCLUSION: Negative for fracture or dislocation. Follow up in 7-10 days is suggested if symptoms persist. Kenneth Ramírez MD FACR on December 16, 2017 at 15:55 Board Certified Radiologist. This report was verified electronically.
== END 2017-12-16 16:45 | disposition home or self-care (01) ==
LOC: PHEFT 14:51
DX: M77.9 Enthesopathy, unspecified (principal); F17.210 Nicotine dependence, cigarettes, uncomplicated; Z88.8 Allergy status to other drugs, medicaments and biological substances
CPT/HCPCS: 73120; 96372; 99283; J1885; L3908

== ENCOUNTER 2018-02-09 08:29 | Emergency (ER) | payer OTHER ==
[2018-02-09 08:34] VITALS: BP 134/87; PULSE 83; RESP 16; TEMP 98.7; O2SAT 100
[2018-02-09] MEDS ORDERED: AMOX500C PO (09:23)
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
[2018-02-09] MEDS ORDERED: KETOROLAC TROMETHAMINE 60 MG/2 ML (IM) VIAL IM ONE (09:30)
== END 2018-02-09 09:34 | disposition home or self-care (01) ==
LOC: NEPK 08:29
DX: H66.92 Otitis media, unspecified, left ear (principal); J32.9 Chronic sinusitis, unspecified; F41.9 Anxiety disorder, unspecified; F17.200 Nicotine dependence, unspecified, uncomplicated
CPT/HCPCS: 96372; 99283; J1885